=== PATIENT | female | born 1955 | race Caucasian/White ===

== ENCOUNTER 2019-09-01 15:28 | Inpatient (IN) | payer MEDICAID ==
[~2019-09-01] VITALS: Ht 157.5 cm; Wt 52.5 kg
--- NOTE | 2019-09-01 15:48 | NUR ---
JUDY. REPORT RECEIVED FROM EMS. PT C/O GENERALIZED WEAKNESS AND NAUSEA X 4-6 DAYS. DENIES ANY OTHER SX. PT'S AOX4. RESPS EVEN AND UNLABORED. 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 BP/SPO2 MONITORS IN PLACE. CALL LIGHT WITHIN REACH.
[2019-09-01] MEDS ORDERED: SODIUM (15:50)
[2019-09-01] MEDS ORDERED: LISI2.5T PO (15:50)
[2019-09-01] MEDS ORDERED: SERT25TA3 PO (15:50)
[2019-09-01] MEDS ORDERED: ATOR40TA78 PO (15:51)
[2019-09-01] MEDS ORDERED: [UNRECOGNIZED DRUG - OTHER] (15:51)
--- NOTE | 2019-09-01 17:17 | NUR ---
PT WHEELED TO WITH THIS RN. PT WAS NOT ABLE TO PROVIDE URINE SAMPLE AT THIS TIME. PT REFUSED STRAIGHT CATH. PA NOTIFIED.
--- NOTE | 2019-09-01 17:18 | NUR ---
WATER PROVIDED BY PA'S VERBAL ORDER AT THIS TIME.
[2019-09-01 17:30] LABS: ALANINE AMINOTRANSFERASE 133 U/L (12-78); ALBUMIN 4.2 g/dL (3.4-5.0); ANION GAP 15 mmol/L (5-15); CALCIUM 10.2 mg/dL (8.5-10.1); CHLORIDE 85 mmol/L (98-107); CREATININE 4.88 mg/dL (0.55-1.02)
[2019-09-01 17:32] LABS: ALKALINE PHOSPHATASE 429 U/L (45-117); TOTAL PROTEIN 8.9 g/dL (6.4-8.2)
[2019-09-01 17:53] LABS: BASOPHILS # (AUTO) 0.05 x10^3/uL (0-0.1); BASOPHILS % (AUTO) 1 % (0-1); EOSINOPHILS # (AUTO) 0.01 x10^3/uL (0-0.4); EOSINOPHILS % (AUTO) 0 % (1-7); LYMPHOCYTES # (AUTO) 1.22 x10^3/uL (1-3.4); LYMPHOCYTES % (AUTO) 12 % (22-44); MD SCAN; MEAN CORPUSCULAR HEMOGLOBIN 34.2 pg (27.0-34.8); MONOCYTES # (AUTO) 0.77 x10^3/uL (0.2-0.8); MONOCYTES % (AUTO) 8 % (2-9); NEUTROPHILS # (AUTO) 8.15 x10^3/uL (1.8-6.8); NEUTROPHILS % (AUTO) 80 % (42-75); RED CELL DISTRIBUTION WIDTH 15.5 % (9.6-15.2)
[2019-09-01 17:54] LABS: PLATELET COUNT 143 x10^3/uL (130-400)
--- NOTE | 2019-09-01 18:13 | NUR ---
pt resting in [facility]. pt is not able to provide urine sample yet. resps even and unlabored. pt's aox4.
[2019-09-01] MEDS ORDERED: LACTATED RINGERS 1,000 ML IV ONE (18:16)
--- NOTE | 2019-09-01 18:28 | NUR ---
pt wheeled to br. pt is still not able to provide urine sample. pt still refused straight cath.
--- NOTE | 2019-09-01 18:29 | NUR ---
us at bedside at this time.
[2019-09-01] MEDS ORDERED: POTASSIUM CHLORIDE 20 MEQ TAB.ER.PRT PO ONE (18:30)
[2019-09-01] MEDS ORDERED: PLEASE ENTER ALLERGIES MC SCH (18:30)
[2019-09-01] MEDS ORDERED: POTASSIUM CHLORIDE 20 MEQ TAB.ER.PRT ONE (18:33)
--- NOTE | 2019-09-01 19:00 | NUR ---
report given to brandon garrison.
[2019-09-01 19:02] LABS: CHOL/HDL RATIO 10.6; LDL/HDL RATIO 7.7 (0.5-3.0)
--- NOTE | 2019-09-01 19:03 | NUR ---
BEDSIDE REPORT FROM NOELLE ANDERSON. PT CARE TRANSFERRED AT THIS TIME. FIRST PT CONTACT: PT RESTING IN [facility], APPEARS COMFORTABLE IN [facility], CAME IN DUE TO N/V AND GENERAL FATIGUE. PT APPEARS TO BE RESTING COMFORTABLY IN [facility]. BP SLIGHTLY LOW AT 80S/50S, PT DENIES AND DIZZINESS AT THIS TIME. ANOx4, GROSS NEURO INTACT. WCTM. RN PLACE PT ON ECG MONITOR, PT IN NSR TO TACHY SINUS RHYTHM.
[2019-09-01] MEDS ORDERED: ACETAMINOPHEN 325 MG TABLET PO PRN (20:00)
[2019-09-01] MEDS ORDERED: hydrALAzine 20 MG/ML, 1ML IVPush PRN (20:00)
--- NOTE | 2019-09-01 20:10 | NUR ---
PT RESTING IN [facility] SENT TO LAB, DENIES ADDITIONAL NEEDS CURRENTLY, LIGHTS DIMMED FOR COMFORT, NAD, VSS. WCTM. WAITING FOR ADMIT BED.
[2019-09-01 20:31] LABS: MICROSCOPIC INDICATED
--- NOTE | 2019-09-01 20:49 | NUR ---
PRECEPTOR RN: MEDS REQUESTED FROM PHARMACY
[2019-09-01] MEDS ORDERED: HEPARIN 5,000 UNITS/ML, 1ML ONE ×2 (22:02→22:23)
[2019-09-01] MEDS ORDERED: NICOTINE 14MG/24 HR PATCH.TD24 ONE ×2 (22:02→22:22)
--- NOTE | 2019-09-01 22:11 | NUR ---
PRECEPTOR RN: PT ASSISTED TO BEDSIDE COMMODE, SMALL AMOUNT OF URINE OUTPUT. PT BACK TO BED WITHOUT DIFFICULTY. AWAITING BED FOR PT ON MEDICAL FLOOR. PT DENIES ANY OTHER NEEDS AT THIS TIME. WILL CONTINUE TO MONITOR.
--- NOTE | 2019-09-01 22:19 | NUR ---
REPORT CALLED TO RACHEL ANDERSON. PT CARE TO BE TRANSFERRED UPON ARRIVAL TO THE FLOOR. PT IS NAD, VSS, CONDITION UNCHANGED, WCTM. WAITING FOR TRANSFER
[2019-09-01] MEDS: HEPARIN 5,000 UNITS/ML, 1ML SQ SCH (22:26)
[2019-09-01] MEDS: NICOTINE 14MG/24 HR PATCH.TD24 TD SCH (22:26)
[2019-09-01 22:50] VITALS: BP 126/70
[2019-09-01] MEDS: ATORVASTATIN 20 MG TABLET PO SCH (23:28)
[2019-09-02] MEDS: NS + 20MEQ KCL 1,000 ML IV SCH ×3 (00:05→21:07)
[2019-09-02 00:10] VITALS: BP 115/69
[2019-09-02] MEDS ORDERED: SODI1TAB PO (00:40)
[2019-09-02] MEDS ORDERED: MULT-658 PO (00:40)
[2019-09-02] MEDS ORDERED: LISI-170 PO (00:40)
[2019-09-02] MEDS ORDERED: ATOR20TA37 PO (00:40)
[2019-09-02] MEDS ORDERED: SERT50TA28 PO (00:40)
[2019-09-02] MEDS ORDERED: MAGN400T26 PO (00:40)
[2019-09-02] MEDS ORDERED: ZQUIL PO (00:43)
[2019-09-02] MEDS ORDERED: OMEP-110 PO (00:43)
[2019-09-02] MEDS: CEFTRIAXONE PMX 1GM/50ML 50 ML IV SCH (01:48)
[2019-09-02] MEDS: morphine SULFATE 10 MG/ML, 1ML IVPush PRN ×4 (02:57→23:26)
[2019-09-02 06:00] LABS: BASOPHILS # (AUTO) 0.02 x10^3/uL (0-0.1); BASOPHILS % (AUTO) 0 % (0-1); EOSINOPHILS # (AUTO) 0.01 x10^3/uL (0-0.4); EOSINOPHILS % (AUTO) 0 % (1-7); LYMPHOCYTES # (AUTO) 1.04 x10^3/uL (1-3.4); LYMPHOCYTES % (AUTO) 17 % (22-44); MD NO; MEAN CORPUSCULAR HEMOGLOBIN 34.5 pg (27.0-34.8); MEAN CORPUSCULAR HGB CONC 34.4 g/dL (32.4-35.8); MEAN PLATELET VOLUME 6.3 fL (7.4-10.4); MONOCYTES # (AUTO) 0.68 x10^3/uL (0.2-0.8); MONOCYTES % (AUTO) 11 % (2-9); NEUTROPHILS # (AUTO) 4.44 x10^3/uL (1.8-6.8); NEUTROPHILS % (AUTO) 72 % (42-75); PLATELET COUNT 108 x10^3/uL (130-400); RED BLOOD COUNT 2.74 x10^6/uL (3.82-5.3); RED CELL DISTRIBUTION WIDTH 15.2 % (9.6-15.2)
[2019-09-02 06:15] LABS: CHLORIDE 91 mmol/L (98-107)
[2019-09-02] MEDS: HEPARIN 5,000 UNITS/ML, 1ML SQ SCH ×3 (06:16→23:05)
[2019-09-02 06:37] LABS: ANION GAP 13 mmol/L (5-15); CREATININE 3.48 mg/dL (0.55-1.02)
[2019-09-02 07:34] VITALS: BP 96/62
[2019-09-02] MEDS: PANTOPRAZOLE 40 MG IV IVPush SCH (08:15)
[2019-09-02] MEDS ORDERED: POTASSIUM CHLORIDE 40 MEQ in SODIUM CHLORIDE 0.9% 500 ML IV ONE ×2 (10:00→10:30)
[2019-09-02 13:28] VITALS: BP 112/71
[2019-09-02 13:40] LABS: ANION GAP 11 mmol/L (5-15); CALCIUM 8.6 mg/dL (8.5-10.1); CHLORIDE 96 mmol/L (98-107); CREATININE 2.96 mg/dL (0.55-1.02)
[2019-09-02 14:06] LABS: BILIRUBIN, DIRECT 0.3 mg/dL (0.1-0.2)
[2019-09-02 14:08] LABS: BILIRUBIN,INDIRECT 0.4 mg/dL (0.0-2.0); BILIRUBIN,TOTAL 0.7 mg/dL (0.2-1.0); TOTAL PROTEIN 6.6 g/dL (6.4-8.2)
[2019-09-02 18:49] VITALS: BP 119/72
[2019-09-02] MEDS: ATORVASTATIN 20 MG TABLET PO SCH ×2 (21:07→21:09)
[2019-09-02] MEDS: NICOTINE 14MG/24 HR PATCH.TD24 TD SCH (23:04)
[2019-09-03 00:39] VITALS: BP 132/76
[2019-09-03] MEDS: CEFTRIAXONE PMX 1GM/50ML 50 ML IV SCH (02:01)
[2019-09-03 06:07] LABS: BASOPHILS # (AUTO) 0.02 x10^3/uL (0-0.1); BASOPHILS % (AUTO) 0 % (0-1); EOSINOPHILS # (AUTO) 0.01 x10^3/uL (0-0.4); EOSINOPHILS % (AUTO) 0 % (1-7); LYMPHOCYTES # (AUTO) 0.75 x10^3/uL (1-3.4); LYMPHOCYTES % (AUTO) 12 % (22-44); MD NO; MEAN CORPUSCULAR HEMOGLOBIN 34.3 pg (27.0-34.8); MEAN CORPUSCULAR HGB CONC 33.8 g/dL (32.4-35.8); MEAN PLATELET VOLUME 6.1 fL (7.4-10.4); MONOCYTES # (AUTO) 0.65 x10^3/uL (0.2-0.8); MONOCYTES % (AUTO) 11 % (2-9); NEUTROPHILS # (AUTO) 4.75 x10^3/uL (1.8-6.8); NEUTROPHILS % (AUTO) 77 % (42-75); PLATELET COUNT 135 x10^3/uL (130-400); RED BLOOD COUNT 2.64 x10^6/uL (3.82-5.3); RED CELL DISTRIBUTION WIDTH 15.6 % (9.6-15.2)
[2019-09-03] MEDS: NS + 20MEQ KCL 1,000 ML IV SCH ×3 (06:13→21:39)
[2019-09-03 06:15] LABS: CHLORIDE 103 mmol/L (98-107)
[2019-09-03] MEDS: morphine SULFATE 10 MG/ML, 1ML IVPush PRN ×3 (06:19→21:33)
[2019-09-03 06:27] LABS: ALANINE AMINOTRANSFERASE 75 U/L (12-78); ALBUMIN 2.9 g/dL (3.4-5.0); ALKALINE PHOSPHATASE 292 U/L (45-117); ANION GAP 14 mmol/L (5-15); BILIRUBIN,TOTAL 0.5 mg/dL (0.2-1.0); CALCIUM 8.8 mg/dL (8.5-10.1); CREATININE 1.72 mg/dL (0.55-1.02); TOTAL PROTEIN 6.8 g/dL (6.4-8.2)
[2019-09-03 06:35] VITALS: BP 149/79
[2019-09-03] MEDS: HEPARIN 5,000 UNITS/ML, 1ML SQ SCH ×3 (08:28→23:09)
[2019-09-03] MEDS: PANTOPRAZOLE 40 MG IV IVPush SCH (08:28)
[2019-09-03 14:42] VITALS: BP 146/78
[2019-09-03 18:45] VITALS: BP 134/74
[2019-09-03] MEDS: NICOTINE 14MG/24 HR PATCH.TD24 TD SCH (21:33)
[2019-09-03] MEDS: ATORVASTATIN 20 MG TABLET PO SCH (21:33)
[2019-09-04 01:32] VITALS: BP 151/77
[2019-09-04] MEDS: CEFTRIAXONE PMX 1GM/50ML 50 ML IV SCH (01:35)
[2019-09-04] MEDS: morphine SULFATE 10 MG/ML, 1ML IVPush PRN ×4 (02:32→20:19)
[2019-09-04] MEDS: NS + 20MEQ KCL 1,000 ML IV SCH ×3 (05:41→23:41)
[2019-09-04 05:42] LABS: ALBUMIN 2.8 g/dL (3.4-5.0); ANION GAP 9 mmol/L (5-15); CALCIUM 8.7 mg/dL (8.5-10.1); CHLORIDE 102 mmol/L (98-107)
[2019-09-04 05:49] LABS: ALANINE AMINOTRANSFERASE 59 U/L (12-78); ALKALINE PHOSPHATASE 257 U/L (45-117); BILIRUBIN,TOTAL 0.4 mg/dL (0.2-1.0); CREATININE 0.97 mg/dL (0.55-1.02); TOTAL PROTEIN 6.7 g/dL (6.4-8.2)
[2019-09-04 06:46] LABS: BASOPHILS # (AUTO) 0.01 x10^3/uL (0-0.1); BASOPHILS % (AUTO) 0 % (0-1); EOSINOPHILS # (AUTO) 0.04 x10^3/uL (0-0.4); EOSINOPHILS % (AUTO) 1 % (1-7); LYMPHOCYTES # (AUTO) 0.96 x10^3/uL (1-3.4); LYMPHOCYTES % (AUTO) 15 % (22-44); MD NO; MEAN CORPUSCULAR HEMOGLOBIN 34.6 pg (27.0-34.8); MEAN CORPUSCULAR HGB CONC 34.5 g/dL (32.4-35.8); MEAN PLATELET VOLUME 5.7 fL (7.4-10.4); MONOCYTES # (AUTO) 0.66 x10^3/uL (0.2-0.8); MONOCYTES % (AUTO) 10 % (2-9); NEUTROPHILS # (AUTO) 4.61 x10^3/uL (1.8-6.8); NEUTROPHILS % (AUTO) 74 % (42-75); PLATELET COUNT 148 x10^3/uL (130-400); RED BLOOD COUNT 2.78 x10^6/uL (3.82-5.3); RED CELL DISTRIBUTION WIDTH 15.9 % (9.6-15.2)
[2019-09-04 07:06] VITALS: BP 145/79
[2019-09-04] MEDS: PANTOPRAZOLE 40 MG IV IVPush SCH (07:26)
[2019-09-04] MEDS: HEPARIN 5,000 UNITS/ML, 1ML SQ SCH ×3 (07:26→23:41)
[2019-09-04 12:48] VITALS: BP 141/80
[2019-09-04] MEDS: LINEZOLID PMX 600MG/300ML 300 ML IV SCH (15:37)
[2019-09-04 18:46] VITALS: BP 137/81
[2019-09-04] MEDS: ATORVASTATIN 20 MG TABLET PO SCH (20:20)
[2019-09-04] MEDS: NICOTINE 14MG/24 HR PATCH.TD24 TD SCH (20:20)
[2019-09-05 00:52] VITALS: BP 154/82
[2019-09-05] MEDS: CEFTRIAXONE PMX 1GM/50ML 50 ML IV SCH (01:45)
[2019-09-05] MEDS: morphine SULFATE 10 MG/ML, 1ML IVPush PRN ×4 (03:15→20:32)
[2019-09-05] MEDS: LINEZOLID PMX 600MG/300ML 300 ML IV SCH ×2 (03:31→14:59)
[2019-09-05] MEDS: ONDANSETRON 2MG/ML, 2ML IVPush PRN (03:35)
[2019-09-05 07:05] VITALS: BP 143/82
[2019-09-05] MEDS: HEPARIN 5,000 UNITS/ML, 1ML SQ SCH ×2 (09:08→16:36)
[2019-09-05] MEDS: PANTOPRAZOLE 40 MG IV IVPush SCH (09:08)
[2019-09-05] MEDS: NS + 20MEQ KCL 1,000 ML IV SCH ×2 (10:40→20:20)
[2019-09-05 14:07] VITALS: BP 149/73
[2019-09-05 18:37] VITALS: BP 114/72
[2019-09-05] MEDS: ATORVASTATIN 20 MG TABLET PO SCH (20:20)
[2019-09-05] MEDS: NICOTINE 14MG/24 HR PATCH.TD24 TD SCH (20:20)
[2019-09-06 00:32] VITALS: BP 143/78
[2019-09-06] MEDS: CEFTRIAXONE PMX 1GM/50ML 50 ML IV SCH (02:00)
[2019-09-06] MEDS: HEPARIN 5,000 UNITS/ML, 1ML SQ SCH ×3 (02:00→16:42)
[2019-09-06] MEDS: LINEZOLID PMX 600MG/300ML 300 ML IV SCH ×2 (03:10→15:00)
[2019-09-06] MEDS: morphine SULFATE 10 MG/ML, 1ML IVPush PRN ×3 (05:18→19:55)
[2019-09-06] MEDS: PANTOPRAZOLE 40 MG IV IVPush SCH (07:30)
[2019-09-06 07:40] VITALS: BP 125/79
[2019-09-06] MEDS: NS + 20MEQ KCL 1,000 ML IV SCH ×2 (08:00→15:26)
[2019-09-06 13:28] VITALS: BP 133/80
[2019-09-06 18:55] VITALS: BP 127/74
[2019-09-06] MEDS: ATORVASTATIN 20 MG TABLET PO SCH (20:01)
[2019-09-06] MEDS: NICOTINE 14MG/24 HR PATCH.TD24 TD SCH (20:02)
[2019-09-07 00:36] VITALS: BP 118/75
[2019-09-07] MEDS: morphine SULFATE 10 MG/ML, 1ML IVPush PRN ×5 (00:45→23:36)
[2019-09-07] MEDS: NS + 20MEQ KCL 1,000 ML IV SCH ×4 (00:45→23:36)
[2019-09-07] MEDS: CEFTRIAXONE PMX 1GM/50ML 50 ML IV SCH (01:59)
[2019-09-07] MEDS: HEPARIN 5,000 UNITS/ML, 1ML SQ SCH ×3 (01:59→16:49)
[2019-09-07] MEDS: LINEZOLID PMX 600MG/300ML 300 ML IV SCH ×2 (03:06→14:59)
[2019-09-07 06:53] VITALS: BP 117/78
[2019-09-07] MEDS: PANTOPRAZOLE 40 MG IV IVPush SCH (08:43)
[2019-09-07 12:33] VITALS: BP 147/83
[2019-09-07 16:03] LABS: ALANINE AMINOTRANSFERASE 43 U/L (12-78); ALBUMIN 2.7 g/dL (3.4-5.0); ANION GAP 8 mmol/L (5-15); CALCIUM 7.2 mg/dL (8.5-10.1); CHLORIDE 103 mmol/L (98-107); CREATININE 0.93 mg/dL (0.55-1.02)
[2019-09-07 16:06] LABS: ALKALINE PHOSPHATASE 251 U/L (45-117); BILIRUBIN,TOTAL 0.3 mg/dL (0.2-1.0); TOTAL PROTEIN 6.6 g/dL (6.4-8.2)
[2019-09-07 16:14] LABS: BASOPHILS # (AUTO) 0.03 x10^3/uL (0-0.1); BASOPHILS % (AUTO) 1 % (0-1); EOSINOPHILS # (AUTO) 0.02 x10^3/uL (0-0.4); EOSINOPHILS % (AUTO) 0 % (1-7); LYMPHOCYTES % (AUTO) 15 % (22-44); MD NO; MEAN CORPUSCULAR HEMOGLOBIN 33.9 pg (27.0-34.8); MEAN CORPUSCULAR HGB CONC 33.7 g/dL (32.4-35.8); MONOCYTES # (AUTO) 0.67 x10^3/uL (0.2-0.8); MONOCYTES % (AUTO) 10 % (2-9); NEUTROPHILS # (AUTO) 4.82 x10^3/uL (1.8-6.8); NEUTROPHILS % (AUTO) 74 % (42-75); PLATELET COUNT 282 x10^3/uL (130-400); RED BLOOD COUNT 2.66 x10^6/uL (3.82-5.3); RED CELL DISTRIBUTION WIDTH 15.5 % (9.6-15.2)
[2019-09-07 18:45] VITALS: BP 130/75
[2019-09-07] MEDS: NICOTINE 14MG/24 HR PATCH.TD24 TD SCH (20:08)
[2019-09-07] MEDS: ATORVASTATIN 20 MG TABLET PO SCH (20:08)
[2019-09-08 01:28] VITALS: BP 134/77
[2019-09-08] MEDS: CEFTRIAXONE PMX 1GM/50ML 50 ML IV SCH (01:42)
[2019-09-08] MEDS: HEPARIN 5,000 UNITS/ML, 1ML SQ SCH ×2 (01:42→09:17)
[2019-09-08] MEDS: LINEZOLID PMX 600MG/300ML 300 ML IV SCH (02:41)
[2019-09-08] MEDS: morphine SULFATE 10 MG/ML, 1ML IVPush PRN ×2 (02:41→08:06)
[2019-09-08 07:08] VITALS: BP 132/76
[2019-09-08] MEDS: PANTOPRAZOLE 40 MG IV IVPush SCH (07:50)
[2019-09-08] MEDS: ONDANSETRON 2MG/ML, 2ML IVPush PRN (07:50)
[2019-09-08] MEDS: NS + 20MEQ KCL 1,000 ML IV SCH (08:36)
[2019-09-08] MEDS ORDERED: LINE600T12 PO (12:16)
[2019-09-08 13:10] VITALS: BP 120/73
== END 2019-09-08 14:19 | disposition home or self-care (01) | DRG 438 ==
LOC: ED 19:27 → EDIP 20:22 → 4WST 22:50
PROVIDERS: ADMIT Hospitalist; ATTEND Internal Medicine
DX: K85.20 Alcohol induced acute pancreatitis without necrosis or infection (principal); N17.0 Acute kidney failure with tubular necrosis; E87.1 Hypo-osmolality and hyponatremia; N39.0 Urinary tract infection, site not specified; N18.9 Chronic kidney disease, unspecified; I12.9 Hypertensive chronic kidney disease with stage 1 through stage 4 chronic kidney disease, or unspecified chronic kidney disease; F17.200 Nicotine dependence, unspecified, uncomplicated; E86.0 Dehydration; E86.1 Hypovolemia; Y90.0 Blood alcohol level of less than 20 mg/100 ml; F10.10 Alcohol abuse, uncomplicated; K74.60 Unspecified cirrhosis of liver; E87.5 Hyperkalemia; F17.210 Nicotine dependence, cigarettes, uncomplicated; Z90.89 Acquired absence of other organs
CPT/HCPCS: 36415; 74176; 76770; 80048; 80053; 80061; 80076; 81001; 82570; 83036; 83690; 83735; 83935; 84100; 84300; 84443; 84550; 85025; 87040; 87077; 87086; 87186; 99285; G0378; J0696; J1644; J2020; J2405; J3480; C9113; J2270; J7040; J7120